=== PATIENT | male | born 1945 | race Caucasian/White ===

== ENCOUNTER 2019-09-05 06:20 | Day surgery (SDC) | payer MEDICARE ==
[2019-09-04 08:59] VITALS: BMI 27.0
[~2019-09-05 06:20] MED LIST: SODIUM CHLORIDE 0.9% 1,000 ML IV SCH
[2019-09-05 07:00] VITALS: TEMP 98
[2019-09-05 07:02] LABS: Glucose,Whole Blood 189 mg/dL (75-99)
[2019-09-05 07:16] LABS: African American GFR (CKD) >90 (>60 ml/min/1.73 sqM); Anion Gap 11 mmol/L; Blood Urea Nitrogen 24 mg/dL (9-20); Calcium 9.1 mg/dL (8.4-10.2); Carbon Dioxide 25 mmol/L (22-30); Chloride 103 mmol/L (98-107); Glucose 181 mg/dL (74-99); Non-African American GFR(CKD) >90 (>60 ml/min/1.73 sqM); Potassium 3.7 mmol/L (3.5-5.1); Sodium 139 mmol/L (137-145)
[2019-09-05] MEDS ORDERED: LIDOCAINE 1% INJ 10MG/ML (20 ML MDV) ONE (07:20)
[2019-09-05] MEDS ORDERED: PROPOFOL 10 MG/ML 20 ML VIAL IV ONE (07:20)
[2019-09-05 08:05] VITALS: RESP 16
--- NOTE | 2019-09-05 08:24 | CE ---
CARDIAC ELECTROPHYSIOLOGY REPORT DATE OF SERVICE: 09/05/2019 ELECTRICAL CARDIOVERSION REPORT: PROCEDURE: Electrical cardioversion. INDICATION: Persistent atrial fibrillation. Mr. Honorio Lizama is a 74-year-old gentleman with a recent onset persistent atrial fibrillation, unresponsive to pharmacological efforts with some underlying sick sinus syndrome type picture. After adequate anticoagulation, he was brought in for electrical cardioversion. PROCEDURE NOTE: With the attendance of the anesthesiologist, under the influence of ultra short-acting intravenous anesthetic agent, a A 200 joule shock was delivered with anterior and posterior patches. Patient did not convert to sinus rhythm and repeat shock was given of 250 joules and this was also unsuccessful. This was unsuccessful electrical cardioversion. The patient was neurologically intact and hemodynamically stable. Results were discussed with the patient and his . He will be discharged later on today and I will see him in the office. We will pursue rate control and anticoagulation. Discussed with the patient and . LIDA / DARLINEN: [id number] /
[2019-09-05 09:21] VITALS: BP 156/88; PULSE 76
== END 2019-09-05 09:21 | disposition home or self-care (01) ==
LOC: CATHCVL 06:20
PROVIDERS: ATTEND Internal Medicine Interventional Cardiology
DX: I48.19 Other persistent atrial fibrillation (principal); I10 Essential (primary) hypertension; E11.9 Type 2 diabetes mellitus without complications; Z85.46 Personal history of malignant neoplasm of prostate; Z90.79 Acquired absence of other genital organ(s); Z98.890 Other specified postprocedural states; Z79.84 Long term (current) use of oral hypoglycemic drugs; Z79.01 Long term (current) use of anticoagulants; Z79.899 Other long term (current) drug therapy
CPT/HCPCS: 92960; 80048; J2001; J2704